=== PATIENT | male | born 1935 | race Caucasian/White ===

== ENCOUNTER → 2019-02-20 | Emergency (ER) | payer OTHER ==
--- NOTE | 2019-02-20 22:50 | NUR ---
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 PT AND FAMILY ARE FROM OUT OF TOWN. I SPENT TIME WITH THEM AND BROUGHT THEM BACK TO SEE THE PT. THEY HAVE A YAZIDI BACK HOME IN [place] BUT DID NOT WANT THE YAZIDI CONTACTED. PT WAS SENT TO [facility] TO BE TRANSPORTED HOME TO ID FOR BURIAL.
== END ==
LOC: ED 19:55 → EDBD 19:56
DX: I46.9 Cardiac arrest, cause unspecified (principal)
CPT/HCPCS: 99285; J0171